=== PATIENT | male | born 1950 | race African-American/Black ===

== ENCOUNTER 2020-09-21 10:42 | Emergency (ER) | payer OTHER ==
[2020-09-21 12:09] LABS: Potassium 3.4 mmol/L (3.5-5.1); Uric Acid 9.2 mg/dL (3.5-7.2)
[2020-09-21] MEDS ORDERED: KETOROLAC 30 MG/ML INJ ONE (12:13)
[2020-09-21] MEDS ORDERED: HYDROCODONE/APAP 10/325 TAB ONE (12:13)
[2020-09-21 12:15] LABS: Absolute Lymphocytes (CBC) 1.7 K/uL (0.7-4.9); Basophils % 0.8 % (0-1.3); Hematocrit 30.5 % (39.6-49.0); Lymphocytes % 18.3 % (15.3-44.8); MPV 8.5 fL (7.6-11.3); RBC Red Blood Cell Count 3.41 M/uL (4.33-5.43)
--- NOTE | 2020-09-21 12:48 | RAD REPORT ---
EXAM DESCRIPTION: RAD - Wrist Left 3 View - 09/21/2020 11:55 am CLINICAL HISTORY: Pain;Swelling Pain COMPARISON: No comparisons FINDINGS: Soft tissue swelling is seen about the wrist. 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 Atherosclerosis is seen. No acute fracture or dislocation.
--- NOTE | 2020-09-21 13:14 | EDPHYS ---
Physician Documentation [facility] Name: Jesus Abarca Age: 70 yrs Sex: Male : 1950 Arrival Date: 09/21/2020 Time: 10:46 Bed 20 Private MD: ED Physician Panchito Kinsey HPI: 09/21 18:02 This 70 yrs old Black Male presents to ER via Ambulatory with complaints of Wrist Pain kdr - Swelling. 18:02 The patient or guardian reports decreased range of motion, pain, swelling, tenderness. kdr The complaints affect the left wrist diffusely. Context: The problem was sustained at home, Has been getting worse over the last two to three weeks. Onset: The symptoms/episode began/occurred gradually, 3 week(s) ago. Modifying factors: The symptoms are alleviated by holding still, the symptoms are aggravated by movement. Associated signs and symptoms: The patient has no apparent associated signs or symptoms. Compartment Syndrome negative for numbness, tingling. Has had other joints more routinely and but only occasionally this joint. The patient has not recently seen a physician. Historical: - Allergies: 10:56 No Known Allergies; ll1 - PMHx: 10:56 Asthma; Hypertension; ll1 - PSHx: 10:56 Appendectomy; prostate sx; ll1 - Immunization history:: Client reports receiving the 2nd dose of the Covid vaccine, Flu vaccine is up to date. - Social history:: Smoking status: Patient denies any tobacco usage or history of. ROS: 18:02 Constitutional: Negative for fever, chills, and weight loss. kdr 18:02 MS/extremity: Positive for decreased range of motion, pain, swelling, tenderness, warmth, of the left wrist. Exam: 18:02 Hand exam: Exam is positive for pain, swelling, tenderness, ROM: limited active range kdr of motion, limited passive range of motion, in the left wrist, Circulation is intact in all extremities. sensation intact. Compartment Syndrome exam of affected extremity: is normal. 18:02 Constitutional: This is a well developed, well nourished patient who is awake, alert, and in no acute distress. Vital Signs: 10:54 BP 181 / 121; Pulse 96; Resp 18; Temp 98.4; Pulse Ox 100% ; Weight 89.81 kg; Height 6 ll1 ft. 1 in. (185.42 cm); Pain 7/10; 13:00 BP 154 / 98; Pulse 94; Resp 18; Pulse Ox 97% on R/A; bw 10:54 Body Mass Index 26.12 (89.81 kg, 185.42 cm) ll1 MDM: 13:13 Patient medically screened. kdr 18:02 Data reviewed: vital signs, nurses notes, lab test result(s), radiologic studies. kdr Counseling: I had a detailed discussion with the patient and/or guardian regarding: the historical points, exam findings, and any diagnostic results supporting the discharge/admit diagnosis, lab results, radiology results, the need for outpatient follow up. Response to treatment: the patient's symptoms have markedly improved after treatment. Special discussion: I discussed with the patient/guardian in detail that at this point there is no indication for admission to the hospital. It is understood, however, that if the symptoms persist or worsen the patient needs to return immediately for re-evaluation. 09/21 11:09 Order name: CBC with Diff; Complete Time: 13:06 kdr 09/21 11:09 Order name: Chem 7; Complete Time: 13:06 kdr 09/21 11:09 Order name: ESR; Complete Time: 13:06 kdr 09/21 11:09 Order name: Wrist Left (3 View) XRAY; Complete Time: 13:06 kdr 09/21 11:09 Order name: Uric Acid; Complete Time: 13:06 kdr 09/21 13:12 Order name: Splint - Wrist; Complete Time: 13:41 kdr Administered Medications: 11:59 Drug: [place] 10 mg-325 mg 1 tabs Route: PO; bw 13:49 Follow up: Response: No adverse reaction bw 12:00 Drug: TORadol - Ketorolac 15 mg Route: IVP; Site: right hand; bw 13:50 Follow up: Response: No adverse reaction bw 13:28 Drug: SOLU-Medrol 125 mg Route: IVP; Site: right hand; bw 13:49 Follow up: Response: No adverse reaction bw 13:28 Drug: Colchicine-Probenecid 2 tabs Route: PO; bw 13:49 Follow up: Response: No adverse reaction bw Disposition: 09/21/20 13:13 Discharged to Home. Impression: Gout, Idiopathic gout, left wrist. - Condition is Stable. - Discharge Instructions: Gout, [id number]. - Prescriptions for Colchicine- Probenecid 0.5-500 mg Oral Tablet - take 1 tablet by ORAL route every 1 hour up to 3 hours; 3 tablet. Ibuprofen 600 mg Oral Tablet - take 1 tablet by ORAL route every 6 hours As needed take with food; 30 tablet. Medrol ([place]) 4 mg Oral Tablets, Dose Pack - take 1 tablet by ORAL route as directed - follow package instructions; 1 packet. Tylenol- Codeine #3 300-30 mg Oral Tablet - take 1 tablet by ORAL route every 4-6 hours As needed; 20 tablet. - Medication Reconciliation Form, Thank You Letter, Prescription Opioid Use form. - Follow up: Private Physician; When: 2 - 3 days; Reason: If symptoms return, Further diagnostic work-up, Recheck today's complaints, Continuance of care, Re-evaluation by your physician. - Problem is new. - Symptoms have improved. Signatures: Dispatcher [employer] EDAZ Panchito Kinsey MD MD kdr Kaylyn Sibley RN RN ss Jennifer Parrish RN RN 1 Cande Hudson RN RN Corrections: (The following items were deleted from the chart) 13:49 13:13 09/21/2020 13:13 Discharged to Home. Impression: Gout; Idiopathic gout, left ss wrist. Condition is Stable. Forms are Medication Reconciliation Form, Thank You Letter, Antibiotic Education, Prescription Opioid Use. Follow up: Private Physician; When: 2 - 3 days; Reason: If symptoms return, Further diagnostic work-up, Recheck today's complaints, Continuance of care, Re-evaluation by your physician. Problem is new. Symptoms have improved. kdr
--- NOTE | 2020-09-21 13:14 | ER ---
Nurse's Notes [facility] Name: Jesus Abarca Age: 70 yrs Sex: Male : 1950 Arrival Date: 09/21/2020 Time: 10:46 Bed 20 Private MD: Diagnosis: Gout;Idiopathic gout, left wrist Presentation: 09/21 10:54 Chief complaint: Patient states: L wrist pain, swelling, redness for 2-3 weeks. Can't ll1 remember falling or any trauma. Coronavirus screen: Client denies travel out of the [place] in the last 14 days. At this time, the client does not indicate any symptoms associated with coronavirus-19. Ebola Screen: Patient denies travel to an Ebola-affected area in the 21 days before illness onset. Initial Sepsis Screen: Does the patient meet any 2 criteria? Altered Mental Status. No. Patient's initial sepsis screen is negative. Does the patient have a suspected source of infection? Yes: Skin breakdown/wound Bone or joint infection. Risk Assessment: Do you want to hurt yourself or someone else? Patient reports no desire to harm self or others. Onset of symptoms was August 31, 2020. 10:54 Method Of Arrival: Ambulatory ll1 10:54 Acuity: BARBARA 3 ll1 Triage Assessment: 12:45 General: Appears in no apparent distress. uncomfortable, Behavior is calm, cooperative, bw appropriate for age. Pain: Complains of pain in left hand. Historical: - Allergies: 10:56 No Known Allergies; ll1 - PMHx: 10:56 Asthma; Hypertension; ll1 - PSHx: 10:56 Appendectomy; prostate sx; ll1 - Immunization history:: Client reports receiving the 2nd dose of the Covid vaccine, Flu vaccine is up to date. - Social history:: Smoking status: Patient denies any tobacco usage or history of. Screenin:00 Abuse screen: Denies threats or abuse. Nutritional screening: No deficits noted. bw Tuberculosis screening: No symptoms or risk factors identified. Fall Risk None identified. Assessment: 12:00 Reassessment: Patient appears in no apparent distress at this time. Patient and/or bw family updated on plan of care and expected duration. Pain level reassessed. Patient is alert, oriented x 3, equal unlabored respirations, skin warm/dry/pink. 13:00 Reassessment: Patient appears in no apparent distress at this time. Patient and/or bw family updated on plan of care and expected duration. Pain level reassessed. Patient is alert, oriented x 3, equal unlabored respirations, skin warm/dry/pink. Vital Signs: 10:54 BP 181 / 121; Pulse 96; Resp 18; Temp 98.4; Pulse Ox 100% ; Weight 89.81 kg; Height 6 ll1 ft. 1 in. (185.42 cm); Pain 7/10; 13:00 BP 154 / 98; Pulse 94; Resp 18; Pulse Ox 97% on R/A; bw 10:54 Body Mass Index 26.12 (89.81 kg, 185.42 cm) ll1 ED Course: 10:46 Patient arrived in ED. ds1 10:52 Panchito Kinsey MD is Attending Physician. kdr 10:54 Arm band placed on Patient placed in an exam room, on a stretcher. ll1 10:56 Triage completed. ll1 11:43 Inserted saline lock: 20 gauge in right forearm, using aseptic technique. Blood bw collected. 11:52 Cande Hudson, RN is Primary Nurse. bw 11:54 Wrist Left (3 View) XRAY In Process Unspecified. EDMS 13:00 Patient has correct armband on for positive identification. Bed in low position. Call bw light in reach. Side rails up X 1. 13:00 No provider procedures requiring assistance completed. IV discontinued, intact, bw bleeding controlled, No redness/swelling at site. Pressure dressing applied. Administered Medications: 11:59 Drug: [place] 10 mg-325 mg 1 tabs Route: PO; bw 13:49 Follow up: Response: No adverse reaction bw 12:00 Drug: TORadol - Ketorolac 15 mg Route: IVP; Site: right hand; bw 13:50 Follow up: Response: No adverse reaction bw 13:28 Drug: SOLU-Medrol 125 mg Route: IVP; Site: right hand; bw 13:49 Follow up: Response: No adverse reaction bw 13:28 Drug: Colchicine-Probenecid 2 tabs Route: PO; bw 13:49 Follow up: Response: No adverse reaction bw Outcome: 13:00 Discharged to home bw 13:00 Condition: stable 13:00 Discharge instructions given to patient, Instructed on discharge instructions, medication usage, Demonstrated understanding of instructions, follow-up care, medications, Prescriptions given X 4. 13:13 Discharge ordered by . ghada 13:49 Patient left the ED. ss Signatures: Dispatcher [employer] EDMS Panchito Kinsey MD MD [facility] Lionel, Leelee ds1 Kaylyn Sibley RN RN ss Jennifer Parrish RN RN ll1 Cande Hudson RN RN
[2020-09-21] MEDS ORDERED: COLCHICINE 0.6 MG TAB ONE (13:40)
[2020-09-21] MEDS ORDERED: METHYLPREDNISOLONE 125 MG INJ ONE (13:40)
[2020-09-21 14:13] VITALS: TEMP 98.4
[2020-09-21 14:14] VITALS: BP 154/98; O2SAT 97
== END 2020-09-21 13:49 | disposition home or self-care (01) ==
LOC: ER 10:42
DX: M10.032 Idiopathic gout, left wrist (principal); J45.909 Unspecified asthma, uncomplicated; I10 Essential (primary) hypertension
CPT/HCPCS: 85025; 80048; 36415; 84550; 85652; 73110; 96375; 96374; 99284; J2930